=== PATIENT | female | born 1955 | race Caucasian/White ===

== ENCOUNTER 2017-01-01 06:44 | Inpatient (IN) | payer OTHER ==
[~2017-01-01] VITALS: Ht 154.9 cm; Wt 124.0 kg
[~2017-01-01 06:44] MED LIST: ADVAIR HFA120 INHAL2 IH; AMBIEN CR12.5 MG PO; ANORO ELLIPTA1 EACH IH; BETAMETHASONE D45 G1 TP; CARISOPRODOL250 MG PO; CLARITIN,ALAVAR10 MG PO; CYMBALTA60 MG PO; DECADRON4 MG PO; DENTA 5000 PLUS51 GM DT; DICLOFENAC SOD100 G1 TP; DIOVAN160 MG PO; FLEXERIL10 MG PO; FLUOXETINE HCL40 MG PO; GABAPENTIN600 MG PO; HUMALOG100 UNIT/2 SC; HYDROCODON-ACE1 EAC7 PO; HYDROMORPHONE HC4 MG PO; IRON325 M1 PO; LANTUS 3 M100 UNITS1 SC; LEVAQUIN750 MG PO; LEVOTHYROXINE200 MC1 PO; LEVOXYL200 MCG PO; LORCET PLUS 7.1 EACH PO; LOVENOX40 MG/0.4 SC; MAXZIDE 37.5 M1 EACH PO; MORPHINE SULFAT15 M1 PO; MORPHINE SULFAT15 MG PO; NEURONTIN600 MG PO; NIACIN FLUSH F1 EACH PO; NORCO 5/3251 TABLET PO; ONE DAILY FOR1 EAC3 PO; OXYCODONE-APAP1 EACH PO; PERCOCET 5/31 TABLET PO; PROZAC40 MG PO; SIMVASTATIN40 MG PO; SOMA250 MG PO; SOMA350 MG PO; SYNTHROID200 MCG PO; TRIAMTERENE-HC1 EACH PO; TYLENOL EXTRA500 MG PO; VITAMIN D32000 UNI1 PO; VITAMIN D35000 UNIT PO; ZOCOR40 MG PO; ZOLPIDEM TART12.5 MG PO
[2017-01-01] MEDS ORDERED: ALLOPURINOL100 MG PO (07:30)
[2017-01-01] MEDS ORDERED: VITAMIN B122500 MC1 PO (07:31)
[2017-01-01] MEDS ORDERED: FLONASE ALLERG9.9 ML BOTH NARES (07:32)
[2017-01-01 07:34] VITALS: BP 154/74
[2017-01-01 08:42] LABS: POINT-OF-CARE METER ID UU14174212; POINT-OF-CARE USER ID AHSRSCSLC11
[2017-01-01 11:57] LABS: POINT-OF-CARE METER ID UU13113675
[2017-01-01 12:38] LABS: HEMATOCRIT 36.8 % (36.0-46.0); MCH 30.1 PG (29.0-34.0); MCHC 31.8 G/DL (30.0-36.0); MCV 94.6 FL (83-99); PLATELET COUNT 273 K/uL (156-360); RBC DIS.WIDTH-CV 14.6 % (11.8-14.6); RED BLOOD COUNT 3.89 M/uL (3.80-5.20); WHITE BLOOD COUNT 7.1 K/uL (4.1-10.2)
[2017-01-01 13:37] VITALS: BP 180/86
[2017-01-01 16:51] VITALS: BP 176/81
[2017-01-01 20:00] VITALS: BP 182/81
[2017-01-01 22:01] LABS: POINT-OF-CARE METER ID UU14188577
[2017-01-02] VITALS (7 sets, daily range): BP systolic 171–186; BP diastolic 77–84
[2017-01-02 05:46] LABS: HEMATOCRIT 37.3 % (36.0-46.0)
[2017-01-02 06:16] LABS: ANION GAP 10 MEQ/L (2-14); CHLORIDE 102 MEQ/L (99-109); GFR ESTIMATE (CALCULATED) 35 mL/min/; GLUCOSE 160 mg/dL (70-99); POTASSIUM 4.9 MEQ/L (3.7-5.4); SAMPLE HEMOLYSIS CHECK 0; SAMPLE ICTERIC CHECK 0; SAMPLE LIPEMIA CHECK 0; SODIUM 136 MEQ/L (136-147); UREA NITROGEN (BUN) 25 mg/dL (9-23)
[2017-01-02 06:18] LABS: POINT-OF-CARE METER ID UU14188577
[2017-01-02 11:46] LABS: POINT-OF-CARE METER ID UU14188577
[2017-01-02 16:30] LABS: POINT-OF-CARE METER ID UU14188577
[2017-01-03 03:30] VITALS: BP 142/67
[2017-01-03 05:41] LABS: MCV 92.6 FL (83-99)
[2017-01-03 06:44] LABS: POINT-OF-CARE METER ID UU14188577
[2017-01-03 07:41] VITALS: BP 142/78
[2017-01-03] MEDS ORDERED: DOCUSATE SODIU100 MG PO (08:50)
[2017-01-03] MEDS ORDERED: LOVENOX40 MG/0.4 SC (08:52)
[2017-01-03] MEDS ORDERED: ENDOCET 5-3251 EACH PO (08:52)
[2017-01-03 11:40] LABS: POINT-OF-CARE METER ID UU14188577
[2017-01-03 12:09] VITALS: BP 138/80
[2017-01-03 16:30] VITALS: BP 149/67
[2017-01-03 17:27] LABS: POINT-OF-CARE METER ID UU14188577
[2017-01-04 00:47] VITALS: BP 144/65
[2017-01-04 08:37] VITALS: BP 108/58
[2017-01-04 11:40] VITALS: BP 134/69
[2017-01-04 12:31] LABS: POINT-OF-CARE METER ID UU14188577
[2017-01-04 17:00] VITALS: BP 145/68
[2017-01-05 00:27] VITALS: BP 147/67
[2017-01-05 08:17] VITALS: BP 135/67
== END 2017-01-05 14:05 | DRG 470 ==
LOC: 3EAST 06:44 → 2SOUTH 06:44 → 3EAST 13:12 → 2SOUTH 14:09 → 3EAST 01-04 04:07
PROVIDERS: Orthopaedic Surgery
PROC: 0SRD0J9 Replacement of Left Knee Joint with Synthetic Substitute, Cemented, Open Approach (ICD-10-PCS; principal; 2017-01-01)
DX: M17.12 Unilateral primary osteoarthritis, left knee (principal); F33.9 Major depressive disorder, recurrent, unspecified; Z68.43 Body mass index [BMI] 50.0-59.9, adult; E03.9 Hypothyroidism, unspecified; E78.5 Hyperlipidemia, unspecified; N18.9 Chronic kidney disease, unspecified; M79.7 Fibromyalgia; Z96.642 Presence of left artificial hip joint; M21.162 Varus deformity, not elsewhere classified, left knee; E11.22 Type 2 diabetes mellitus with diabetic chronic kidney disease; G47.33 Obstructive sleep apnea (adult) (pediatric); I12.9 Hypertensive chronic kidney disease with stage 1 through stage 4 chronic kidney disease, or unspecified chronic kidney disease; M1A.9XX0 Chronic gout, unspecified, without tophus (tophi); E66.01 Morbid (severe) obesity due to excess calories; K58.9 Irritable bowel syndrome, unspecified; E55.9 Vitamin D deficiency, unspecified; Z79.4 Long term (current) use of insulin; Z87.891 Personal history of nicotine dependence; Z80.0 Family history of malignant neoplasm of digestive organs; Z83.3 Family history of diabetes mellitus; Z82.3 Family history of stroke
CPT/HCPCS: 71010; 73560; 80048; 82948; 85014; 85018; 85027; 97530 GO; 97530 GP; J0131; J0690; J1170; J1650; J1815; J2250; J2405; J3010; J7050